=== PATIENT | female | born 1990 | race Two or more races ===

== ENCOUNTER 2023-04-12 14:33 | Emergency (ER) | payer SELFPAY ==
[~2023-04-12] VITALS: Ht 182.9 cm; Wt 66.0 kg
[2023-04-12] MEDS ORDERED: HYDROcodone-ACET 10/325MG TAB PO ONE (15:15)
[2023-04-12] MEDS ORDERED: NEOMYCIN-BACITRACIN-POLYM UNITDOSE PKG TOP OINT TOP ONE (15:15)
[2023-04-12] MEDS ORDERED: TETANUS-DIPTH-ACEL PERTUSSIS 0.5ML SYR Tdap IM ONE (15:15)
[2023-04-12] MEDS ORDERED: KETOROLAC TROMETH 60MG/2ML VIAL IM ONE (15:15)
[2023-04-12] MEDS ORDERED: BACIOIN15 TOP (16:35)
[2023-04-12] MEDS ORDERED: IBUP-1455 PO (16:35)
[2023-04-12] MEDS ORDERED: ACE3T PO (16:37)
[2023-04-12 19:20] VITALS: BP 139/82; PULSE 85; RESP 16; TEMP 98; O2SAT 98
== END 2023-04-12 19:23 | disposition home or self-care (01) ==
LOC: ER 14:33
DX: S42.031A Displaced fracture of lateral end of right clavicle, initial encounter for closed fracture (principal); S40.011A Contusion of right shoulder, initial encounter; V86.56XA Driver of dirt bike or motor/cross bike injured in nontraffic accident, initial encounter; Y93.89 Activity, other specified; Y92.89 Other specified places as the place of occurrence of the external cause; Y99.8 Other external cause status
CPT/HCPCS: 73000; 73030